=== PATIENT | male | born 1935 | race Caucasian/White ===

== ENCOUNTER → 2016-08-04 | Outpatient (CLI) | payer OTHER, MEDICAID | LOC: BHFA 13:00 | PROVIDERS: ATTEND Internal Medicine Cardiovascular Disease | DX: R55 Syncope and collapse (principal) ==

== ENCOUNTER → 2016-08-04 | Outpatient (CLI) | payer OTHER, MEDICAID | LOC: CIMAGING 16:26 | PROVIDERS: ATTEND Internal Medicine | DX: M79.671 Pain in right foot (principal); M79.89 Other specified soft tissue disorders | CPT/HCPCS: 73660-PO ==

== ENCOUNTER → 2016-08-10 | Outpatient (CLI) | payer OTHER, MEDICAID | LOC: BHFA 14:30 | PROVIDERS: ATTEND Internal Medicine Cardiovascular Disease | DX: M79.674 Pain in right toe(s) (principal); G89.29 Other chronic pain ==

== ENCOUNTER → 2016-08-26 | Outpatient (CLI) | payer OTHER, MEDICAID ==
[~2016-08-26] MED LIST: IOPAMIDOL (ISOVUE 370) 100 ML BTL IV ONE
== END ==
LOC: CIMAGING 13:58
PROVIDERS: ATTEND Internal Medicine
DX: I73.9 Peripheral vascular disease, unspecified (principal); T82.858A Stenosis of other vascular prosthetic devices, implants and grafts, initial encounter
CPT/HCPCS: 75635; Q9967; 82565-PO

== ENCOUNTER → 2017-02-04 | Outpatient (CLI) | payer OTHER, MEDICAID | LOC: CIMAGING 11:44 | PROVIDERS: ATTEND Internal Medicine | DX: M25.552 Pain in left hip (principal) | CPT/HCPCS: 73502-PO ==

== ENCOUNTER → 2017-02-09 | Outpatient (CLI) | payer OTHER, MEDICAID | LOC: CIMAGING 13:22 | PROVIDERS: ATTEND Internal Medicine | DX: S32.592A Other specified fracture of left pubis, initial encounter for closed fracture (principal); I72.2 Aneurysm of renal artery | CPT/HCPCS: 72192-PO ==

== ENCOUNTER → 2017-04-12 | Outpatient (CLI) | payer OTHER, MEDICAID | LOC: BRMIMAGING 14:15 | PROVIDERS: ATTEND Internal Medicine | DX: Z13.820 Encounter for screening for osteoporosis (principal); M81.0 Age-related osteoporosis without current pathological fracture; Z85.46 Personal history of malignant neoplasm of prostate ==

== ENCOUNTER → 2017-08-31 | Outpatient (CLI) | payer OTHER, MEDICAID | LOC: CIMAGING 10:19 | PROVIDERS: ATTEND Internal Medicine | DX: I71.4 Abdominal aortic aneurysm, without rupture (principal); I70.0 Atherosclerosis of aorta; Z95.820 Peripheral vascular angioplasty status with implants and grafts ==